=== PATIENT | female | born 1940 | race Caucasian/White ===

== ENCOUNTER 2017-04-27 13:49 | Inpatient (IN) | payer OTHER, MEDICARE ==
[~2017-04-27] VITALS: Ht 160 cm; Wt 79.4 kg
--- NOTE | 2017-04-27 13:57 | NUR ---
GOT UP TO FEED DOGS AND STARTED FEELING A LITTLE SHAKY THEN SHE FELL AND HIT HER HEAD ON THE BACK OF A COOLER. UNKNOWN LOC. PT STATES SHE FELT NAUSEOUS PRIOR TO EVENT
--- NOTE | 2017-04-27 13:58 | NUR ---
PT DENIES CP. BP 90/56 IN TRIAGE
--- NOTE | 2017-04-27 14:26 | NUR ---
PT TO ER ROOM 9 VIA WHEELCHAIR. C/O PAIN TO BACK OF HEAD. PT STATES SHE WAS FEEDING THE CAT AND SHE FELL BACKWARDS. PT DENIES LOC. STATES SHE "MIGHT HAVE FELT NAUSEOUS" PRIOR TO FALLING.
--- NOTE | 2017-04-27 14:31 | NUR ---
PT DENIES NECK/BACK PAIN ON PLAPATION, ONLY C/O PAIN TO BACK OF HEAD, NO LACERATION NOTED.
--- NOTE | 2017-04-27 15:16 | NUR ---
PT TO CT, COLLARED BY RAMBO RIVERA
--- NOTE | 2017-04-27 15:25 | NUR ---
PT RETURNED FROM CT
--- NOTE | 2017-04-27 15:35 | NUR ---
LABS SENT (BLUE,SST,LAV,CARMONA)
[2017-04-27 15:42] LABS: ABSOLUTE BASOPHIL COUNT 0 /CUMM (0.0-0.2); ABSOLUTE EOSINOPHIL COUNT 0.1 /CUMM (0.0-0.7); ABSOLUTE GRANULOCYTE CT 5.8 /CUMM (1.4-6.5); ABSOLUTE LYMPH COUNT 1.6 /CUMM (1.2-3.4); BASOPHIL % 0.4 % (0.0-2.0); EOSINOPHIL % 0.9 % (0-5); GRANULOCYTE % 67.9 % (42.2-75.2); HEMATOCRIT 39.9 % (37-47); MEAN CORPUSCULAR HGB CONC 34.1 G/DL (33.0-37.0); MEAN CORPUSCULAR VOLUME 93.8 FL (81.0-99.0); MEAN PLATELET VOLUME 6.7 FL (7.4-10.4); PLATELET COUNT 257 /CUMM (130-400); RBC DISTRIBUTION WIDTH 12.2 % (11.5-14.5); RED BLOOD CELL CT 4.25 /CUMM (4.20-5.40); WHITE BLOOD CELL COUNT 8.6 /CUMM (4.8-10.8)
[2017-04-27] MEDS ORDERED: NEXIUM40 M1 PO (16:08)
[2017-04-27] MEDS ORDERED: AMLODIPINE-BEN1 EAC5 PO (16:08)
[2017-04-27] MEDS ORDERED: CRESTOR10 M1 PO (16:08)
[2017-04-27] MEDS ORDERED: LEVOTHYROXINE112 MCG PO (16:08)
[2017-04-27] MEDS ORDERED: PAROXETINE HCL30 M1 PO (16:08)
[2017-04-27] MEDS ORDERED: HUMIRA40 MG/0.1 INJ (16:09)
[2017-04-27] MEDS ORDERED: FOLIC ACID1 M1 PO (16:09)
[2017-04-27] MEDS ORDERED: VENTOLIN HFA18 GM INH (16:10)
[2017-04-27] MEDS ORDERED: CALCIUM 500 +1 EACH PO (16:11)
[2017-04-27] MEDS ORDERED: VITAMIN D-32000 UNI1 PO (16:11)
--- NOTE | 2017-04-27 16:16 | CT SCAN REPORT ---
CT HEAD WITHOUT IV CONTRAST CT CERVICAL SPINE WITHOUT IV CONTRAST INDICATION: Status post fall. Posterior head pain, right lateral neck pain. COMPARISON: None. TECHNIQUE: Multidetector CT acquisitions of the head, maxillofacial region, and cervical spine were obtained without IV contrast. Multiplanar reformats were acquired and utilized for image interpretation. ESTIMATED DOSE: DLP 1188 mGy-cm. FINDINGS: HEAD: There is no evidence of acute intracranial hemorrhage or territorial infarction. No abnormal mass effect or midline shift is seen. Reaves to white matter differentiation is well preserved. No extra-axial fluid collections are identified. The ventricles are normal in size. There is no abnormal attenuation within the brain parenchyma. The osseous structures and soft tissues are normal. The mastoid air cells and visualized portions of the paranasal sinuses are well aerated. There is a small eva bullosa involving the middle turbinate on the left. CERVICAL SPINE: There is anatomic alignment of the vertebral bodies and posterior elements. There is no acute fracture and there is no acute subluxation. The craniocervical and atlantoaxial articulations appear unremarkable. There is no prevertebral soft tissue swelling. There is a moderate broad-based disc osteophyte complex with moderate hypertrophic productive uncovertebral and facet degenerative changes resulting in moderate to severe canal and bilateral foraminal narrowing at the C4/C5 level. There is a milder broad-based disc bulge at the C5/C6 level with milder hypertrophic uncovertebral degenerative changes resulting in moderate bilateral foraminal narrowing and moderate to severe canal stenosis. There is extensive atherosclerotic calcification of the carotid bulb and proximal internal carotid artery on the right. Ultrasound should be considered to further evaluate. A stent is identified in the proximal left subclavian and a synthetic vascular bypass graft traverses the soft tissues just anterior to the sternum. The right lobe of the thyroid gland has either been removed or is aplastic, left lobe is heterogeneous with mild nodularity. The visualized lung apices are clear. IMPRESSION: 1. No acute intracranial abnormality. 2. No acute osseous abnormality within the cervical spine. 3. Moderate degenerative changes most notably C4/C5 greater than 5/6. 4. Nodularity in the left thyroid gland with probable previous right thyroidectomy. Clinical correlation recommended. 5. Extensive atherosclerotic changes in the right carotid bulb. Clinical correlation is recommended and follow-up Doppler ultrasound to further evaluate if indicated.
--- NOTE | 2017-04-27 16:36 | ED MVC/FALL/TRAUMA COMPLAINT ---
History of Present Illness General Chief Complaint: Fall Stated Complaint: FALL, HIT NECK AND HEAD -LOC Source: patient, family Exam Limitations: no limitations Vital Signs & Intake/Output Vital Signs & Intake/Output Vital Signs Date Time Temp Pulse Resp B/P B/P Pulse O2 O2 Flow FiO2 Mean Ox Delivery Rate 04/29 1412 87 100/60 04/29 1406 97.7 87 18 100/60 98 Room Air 04/29 1013 70 128/72 04/29 1013 70 128/72 04/29 0648 99.1 89 20 180/72 96 Room Air 04/28 2304 98.6 78 20 158/70 95 Room Air ED Intake and Output 04/29 0000 04/28 1200 Intake Total 575 1350 Output Total 600 1400 Balance -25 -50 Intake, IV 100 850 Intake, Oral 475 500 Number 0 Bowel Movements Output, Urine 600 1400 Patient 175 lb Weight Allergies Coded Allergies: Iodinated Contrast- Oral and IV Dye (RASH, SOB 04/27/17) Penicillins (THROAT FELT LIKE IT WAS CLOSING PER PT 04/27/17) shellfish derived (UNKNOWN 04/27/17) Reconcile Medications Adalimumab (Humira) (Unknown Strength) SYRINGEKIT (Unknown Dose) INJ Q2W PSORIASIS (Reported) Albuterol Sulfate (Ventolin Hfa) 90 MCG HFA.AER.AD 1-2 PUF INH AD PRN RESPIRATORY (Reported) Amlodipine Besylate/Benazepril (Amlodipine-Benazepril 10-40 MG) 10 MG-40 MG CAPSULE 1 CAP PO DAILY BP (Reported) Calcium Carbonate/Vitamin D3 (Calcium 500 + Vit D Caplet) (Unknown Strength) TABLET (Unknown Dose) PO DAILY SUPPLEMENT (Reported) Cholecalciferol (Vitamin D3) (Vitamin D-3) (Unknown Strength) CAPSULE (Unknown Dose) PO DAILY SUPPLEMENT (Reported) Esomeprazole (Nexium) 40 MG CAPSULE.DR 1 CAP PO DAILY GI (Reported) Folic Acid 1 MG TABLET 1 TAB PO DAILY SUPPLEMENT (Reported) Levothyroxine Sodium 112 MCG TABLET 1 TAB PO DAILY THYROID (Reported) Paroxetine HCl 30 MG TABLET 1 TAB PO DAILY MENTAL HEALTH (Reported) Rosuvastatin Calcium (Crestor) 10 MG TABLET 1 TAB PO DAILY CHOLESTEROL ( Reported) Triage Note: GOT UP TO FEED DOGS AND STARTED FEELING A LITTLE SHAKY THEN SHE FELL AND HIT HER HEAD ON THE BACK OF A COOLER. UNKNOWN LOC. PT STATES SHE FELT NAUSEOUS PRIOR TO EVENT Triage Nurses Notes Reviewed? yes Onset: Abrupt Duration: hour(s): Timing: single episode today Severity: moderate Injuries/Fall Location: head, neck Method of Injury: fall Loss of Consciousness: unsure No Modifying Factors: none HPI: 76-year-old female presents to emergency department after fall. Patient states that she was in kitchen and was turning around when she suddenly fell onto her back hitting the back of her head. She is unsure if she blacked out or lost consciousness however her son states that he immediately came into the room and she was looking around slightly dazed. Patient experiences intermittent dizziness however denies dizziness just prior to her fall. The patient is complaining of a headache and right-sided neck pain. She denies lightheadedness , chest pain, palpitations, abdominal pain, musculoskeletal pain, back pain. (HI KAN PA-C) Past History Travel History Traveled to [place] past 21 day No Medical History Any Pertinent Medical History? see below for history Neurological: NONE EENT: NONE Cardiovascular: hypertension, hyperlipidemia Respiratory: NONE Gastrointestinal: NONE Hepatic: NONE Renal: NONE Musculoskeletal: PSORIATIC ARTHRITIS Psychiatric: anxiety Endocrine: hypothyroidism Blood Disorders: NONE Cancer(s): NONE BUYER GRAIN/Reproductive: NONE Pneumonia Vaccine: 11/01/08 Influenza Vaccine: 08/01/15 Tetanus Vaccine: 08/31/13 Surgical History Surgical History: non-contributory Psychosocial History Who do you live with Son Services at Home None What is your primary language Azeri Tobacco Use: Quit >30 days ago ETOH Use: denies use Illicit Drug Use: denies illicit drug use Family History Hx Contributory? No (HI KAN PA-C) Review of Systems Review of Systems Constitutional: Reports: no symptoms. Eyes: Reports: no symptoms. Ears, Nose, Throat, Mouth: Reports: no symptoms. Respiratory: Reports: no symptoms. Cardiovascular: Reports: no symptoms. Gastrointestinal/Abdominal: Reports: no symptoms. Genitourinary: Reports: no symptoms. Musculoskeletal: Reports: see HPI. Skin: Reports: no symptoms. Neurological/Psychological: Reports: no symptoms. All Other Systems: Reviewed and Negative (HI KAN PA-C) Physical Exam Physical Exam General Appearance: well developed/nourished, no apparent distress, alert, awake Head: atraumatic, normal appearance, tenderness over occiptal skull, no skin changes Eyes: Bilateral: normal appearance, PERRL, EOMI. 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 Yes Severe Sepsis Present: No Septic Shock Present: No (LUCIUS NEELY,HI) Progress Differential Diagnosis: C/T/L spine injury, ext injury, ICH, spinal cord injury, electrolyte abnormality Plan of Care: Orders Procedure Date/time Status BASIC ELECTROLYTES PLUS BUN&CR 04/30 600 Active Anticipated Discharge 04/29 UNK Active Current Medications Sig/Marisa Start time Last Medication Dose Stop Time Status Admin Docusate Sodium 100 MG BID 04/29 2200 AC 04/29 (Colace) 205 Senna/Docusate Sodium 2 TAB DAILY PRN 04/29 1830 AC (Senokot S) Polyethylene Glycol 17 GM DAILY 04/29 1816 AC 04/29 (Miralax) 1833 Mirtazapine 15 MG AT BEDTIME 04/28 2200 AC 04/29 (Remeron) 2056 Atorvastatin Calcium 40 MG 1700 04/28 1700 AC 04/29 (Lipitor) 1610 Amlodipine Besylate 10 MG DAILY 04/28 1000 AC 04/29 (Norvasc) 1013 Lisinopril 20 MG DAILY 04/28 1000 AC 04/29 (Prinivil) 1013 Levothyroxine Sodium 0.112 MG DAILY AC 04/28 0700 AC 04/29 (Synthroid) 0648 Omeprazole 40 MG DAILY AC 04/28 0700 AC 04/29 (Prilosec) 0648 Aspirin Buffered 81 MG DAILY 04/27 2315 AC 04/29 (Ecotrin) 1013 Enoxaparin Sodium 40 MG DAILY 04/27 2230 AC 04/29 (Lovenox) 1013 Acetaminophen 650 MG Q6P PRN 04/27 2145 AC 04/28 (Tylenol) 1629 Ramelteon 8 MG AT BEDTIME NEED.. 04/27 2145 AC (Rozerem) Laboratory Tests 04/29/17 0706: Anion Gap 8, Estimated GFR > 60, BUN/Creatinine Ratio 15.0 Patient is lying comfortably in bed. I walked patient to restroom and she had some instability, needed support for ambulation. Results of her head and neck CT are within normal limits. Labs reveal hyponatremia and hypochloremia. Fall possibly due to her hyponatremia. 1 L IV fluids replenished, currently slow drip normal saline. Patient was discussed with Dr. Andrade, the patient will need repeat labs to check her electrolyte imbalances, continued slow IV fluids for repletion of sodium, repeat troponin and EKG, possible PT consult if gait instability remains. Spoke with Dr. Costa on the phone and patient will be admitted to general medicine. (LUCIUS NEELY,HI) Diagnostic Imaging: Viewed by Me: CT Scan. Discussed w/RAD: CT Scan. Radiology Impression: PATIENT: TYRESE CHAPA PRESENT AGE: 76 PATIENT ACCOUNT NO: [id number] : 42 LOCATION: [facility] ORDERING PHYSICIAN: HI KAN PA-C SERVICE DATE: 04/27/17 EXAM TYPE: CAT - CT CERV SPINE WO IV CONTRAST; CT HEAD WO IV CONTRAST CT HEAD WITHOUT IV CONTRAST CT CERVICAL SPINE WITHOUT IV CONTRAST INDICATION: Status post fall. Posterior head pain, right lateral neck pain. COMPARISON: None. TECHNIQUE: Multidetector CT acquisitions of the head, maxillofacial region, and cervical spine were obtained without IV contrast. Multiplanar reformats were acquired and utilized for image interpretation. ESTIMATED DOSE: DLP 1188 mGy-cm. FINDINGS: HEAD: There is no evidence of acute intracranial hemorrhage or territorial infarction. No abnormal mass effect or midline shift is seen. Reaves to white matter differentiation is well preserved. No extra-axial fluid collections are identified. The ventricles are normal in size. There is no abnormal attenuation within the brain parenchyma. The osseous structures and soft tissues are normal. The mastoid air cells and visualized portions of the paranasal sinuses are well aerated. There is a small eva bullosa involving the middle turbinate on the left. CERVICAL SPINE: There is anatomic alignment of the vertebral bodies and posterior elements. There is no acute fracture and there is no acute subluxation. The craniocervical and atlantoaxial articulations appear unremarkable. There is no prevertebral soft tissue swelling. There is a moderate broad-based disc osteophyte complex with moderate hypertrophic productive uncovertebral and facet degenerative changes resulting in moderate to severe canal and bilateral foraminal narrowing at the C4/C5 level. There is a milder broad-based disc bulge at the C5/C6 level with milder hypertrophic uncovertebral degenerative changes resulting in moderate bilateral foraminal narrowing and moderate to severe canal stenosis. There is extensive atherosclerotic calcification of the carotid bulb and proximal internal carotid artery on the right. Ultrasound should be considered to further evaluate. A stent is identified in the proximal left subclavian and a synthetic vascular bypass graft traverses the soft tissues just anterior to the sternum. The right lobe of the thyroid gland has either been removed or is aplastic, left lobe is heterogeneous with mild nodularity. The visualized lung apices are clear. IMPRESSION: 1. No acute intracranial abnormality. 2. No acute osseous abnormality within the cervical spine. 3. Moderate degenerative changes most notably C4/C5 greater than 5/6. 4. Nodularity in the left thyroid gland with probable previous right thyroidectomy. Clinical correlation recommended. 5. Extensive atherosclerotic changes in the right carotid bulb. Clinical correlation is recommended and follow-up Doppler ultrasound to further evaluate if indicated. DICTATED BY: LILLIAN GARCIA MD DATE/TIME DICTATED:04/27/171533 SENIOR MECHANICAL DESIGNER:ALEX DATE/TIME TRANSCRIBED:04/27/171533 CONFIDENTIAL, DO NOT COPY WITHOUT APPROPRIATE AUTHORIZATION. <Electronically signed in Other Vendor System> SIGNED BY: LILLIAN GARCIA MD 04/27/17 1616, PATIENT: TYRESE CHAPA PRESENT AGE: 76 PATIENT ACCOUNT NO: [id number] : 42 LOCATION: [facility] ORDERING PHYSICIAN: HI KAN PA-C SERVICE DATE: 04/27/17-6105 EXAM TYPE: CAT - CT CERV SPINE WO IV CONTRAST; CT HEAD WO IV CONTRAST CT HEAD WITHOUT IV CONTRAST CT CERVICAL SPINE WITHOUT IV CONTRAST INDICATION: Status post fall. Posterior head pain, right lateral neck pain. COMPARISON: None. TECHNIQUE: Multidetector CT acquisitions of the head, maxillofacial region, and cervical spine were obtained without IV contrast. Multiplanar reformats were acquired and utilized for image interpretation. ESTIMATED DOSE: DLP 1188 mGy-cm. FINDINGS: HEAD: There is no evidence of acute intracranial hemorrhage or territorial infarction. No abnormal mass effect or midline shift is seen. Reaves to white matter differentiation is well preserved. No extra-axial fluid collections are identified. The ventricles are normal in size. There is no abnormal attenuation within the brain parenchyma. The osseous structures and soft tissues are normal. The mastoid air cells and visualized portions of the paranasal sinuses are well aerated. There is a small eva bullosa involving the middle turbinate on the left. CERVICAL SPINE: There is anatomic alignment of the vertebral bodies and posterior elements. There is no acute fracture and there is no acute subluxation. The craniocervical and atlantoaxial articulations appear unremarkable. There is no prevertebral soft tissue swelling. There is a moderate broad-based disc osteophyte complex with moderate hypertrophic productive uncovertebral and facet degenerative changes resulting in moderate to severe canal and bilateral foraminal narrowing at the C4/C5 level. There is a milder broad-based disc bulge at the C5/C6 level with milder hypertrophic uncovertebral degenerative changes resulting in moderate bilateral foraminal narrowing and moderate to severe canal stenosis. There is extensive atherosclerotic calcification of the carotid bulb and proximal internal carotid artery on the right. Ultrasound should be considered to further evaluate. A stent is identified in the proximal left subclavian and a synthetic vascular bypass graft traverses the soft tissues just anterior to the sternum. The right lobe of the thyroid gland has either been removed or is aplastic, left lobe is heterogeneous with mild nodularity. The visualized lung apices are clear. IMPRESSION: 1. No acute intracranial abnormality. 2. No acute osseous abnormality within the cervical spine. 3. Moderate degenerative changes most notably C4/C5 greater than 5/6. 4. Nodularity in the left thyroid gland with probable previous right thyroidectomy. Clinical correlation recommended. 5. Extensive atherosclerotic changes in the right carotid bulb. Clinical correlation is recommended and follow-up Doppler ultrasound to further evaluate if indicated. DICTATED BY: LILLIAN GARCIA MD DATE/TIME DICTATED:04/27/171533 SENIOR MECHANICAL DESIGNER:ALEX DATE/TIME TRANSCRIBED:04/27/171533 CONFIDENTIAL, DO NOT COPY WITHOUT APPROPRIATE AUTHORIZATION. <Electronically signed in Other Vendor System> SIGNED BY: LILLIAN GARCIA MD 04/27/17 1616 (HI KAN PA-C) Departure Departure Time of Disposition: 1940 Disposition: STILL A PATIENT Condition: Stable Clinical Impression Primary Impression: Hyponatremia Referrals: GERALDO COSTA MD (PCP/Family) Departure Forms: Customer Survey General Discharge Information Admission Note Spoke With: GERALDO COSTA MD Documentation of Exam: Documentation of any treatments & extenuating circumstances including Concerns Regarding Discharge (functional status, medication knowledge or non-compliance, living conditions, etc.) that warrant an admission rather than observation: [ Symptomatic hyponatremia, case management consult, repeat electrolytes and labs, PT eval if there instability persists, slow drip IV fluids, sodium repletion, repeat troponin and EKG, possible rehabilitation given fall, premature discharge with medically harmful] (HI KAN PA-C) PA/FLOWER BUNCHER OR PICKER Co-Sign Statement Statement: ED Attending supervision documentation- x I saw and evaluated the patient. I have also reviewed all the pertinent lab results and diagnostic results. I agree with the findings and the plan of care as documented in the PA's/FLOWER BUNCHER OR PICKER's documentation. [] I have reviewed the ED Record and agree with the PA's/FLOWER BUNCHER OR PICKER's documentation. [] Additions or exceptions (if any) to the PAs/FLOWER BUNCHER OR PICKER's note and plan are summarized below: [] (RUBEN ALEXANDER,ALEJANDRO)
--- NOTE | 2017-04-27 16:43 | NUR ---
COLLARED REMOVED BY PA. PT AMBULATING TO BR, GAIT STEADY.
--- NOTE | 2017-04-27 16:51 | NUR ---
AMB TO BATHROOM URINE TRIO SENT
--- NOTE | 2017-04-27 18:37 | NUR ---
PT UP TO BEDSIDE COMMODE
--- NOTE | 2017-04-27 20:00 | Admission Certification ---
Admission Certification Certification Statement - As attending physician, I certify that at the time of - admission, based on clinical presentation, severity of - symptoms, need for further diagnostic testing and - therapeutic interventions, and risk of adverse outcomes - without in-hospital treatment, in my clinical assessment, - this patient requires an acute hospital stay for a minimum - of two nights or longer. I have also considered psychsocial - factors such as support system, advanced age, financial - issues, cognitive issues, and failed out-patient treatments, - past re-admission history, safety of patient, and lack of - compliance as applicable. Specific rationale supporting this admission is: mechanical fall hyponatremia ? etiology.
--- NOTE | 2017-04-27 20:05 | PN- Att Addend ---
Attending Addendum Attending Brief Note 76 year old female seen recently in the office,started on Paxil after still not feeling better weak poor appetite diarrhea had a mechanical fall at home hit head comes to the ER CT of the head nothing acute,but found to have hyponatremia , will admit follow labs check urine lytes treat low sodium. Laboratory Tests 04/27 04/27 1645 1530 Chemistry Sodium (137 - 145 mmol/L) 124 L Potassium (3.5 - 5.1 mmol/L) 3.6 Chloride (98 - 107 mmol/L) 89 L Carbon Dioxide (22 - 30 mmol/L) 25 Anion Gap (5 - 16) 11 BUN (7 - 17 mg/dL) 18 H Creatinine (0.5 - 1.0 mg/dL) 0.7 Estimated GFR (>60 ml/min) > 60 BUN/Creatinine Ratio (7 - 25 %) 25.7 H Glucose (65 - 99 mg/dL) 96 Calcium (8.4 - 10.2 mg/dL) 9.8 Total Bilirubin (0.2 - 1.3 mg/dL) 0.7 AST (14 - 36 U/L) 28 ALT (9 - 52 U/L) 40 Alkaline Phosphatase (<127 U/L) 64 Troponin I (< 0.11 ng/ml) < 0.01 Total Protein (6.3 - 8.2 g/dL) 6.7 Albumin (3.5 - 5.0 g/dL) 4.1 Globulin (1.9 - 4.2 gm/dL) 2.6 Albumin/Globulin Ratio (1.1 - 2.2 %) 1.6 Hematology CBC w Diff NO MAN DIFF REQ WBC (4.8 - 10.8 /CUMM) 8.6 RBC (4.20 - 5.40 /CUMM) 4.25 Hgb (12.0 - 16.0 G/DL) 13.6 Hct (37 - 47 %) 39.9 MCV (81.0 - 99.0 FL) 93.8 MCH (27.0 - 31.0 PG) 32.0 H RDW (11.5 - 14.5 %) 12.2 Plt Count (130 - 400 /CUMM) 257 MPV (7.4 - 10.4 FL) 6.7 L Gran % (42.2 - 75.2 %) 67.9 Lymphocytes % (20.5 - 51.1 %) 18.7 L Monocytes % (1.7 - 9.3 %) 12.1 H Eosinophils % (0 - 5 %) 0.9 Basophils % (0.0 - 2.0 %) 0.4 Absolute Granulocytes (1.4 - 6.5 /CUMM) 5.8 Absolute Lymphocytes (1.2 - 3.4 /CUMM) 1.6 Absolute Monocytes (0.10 - 0.60 /CUMM) 1.0 H Absolute Eosinophils (0.0 - 0.7 /CUMM) 0.1 Absolute Basophils (0.0 - 0.2 /CUMM) 0 PUBS MCHC (33.0 - 37.0 G/DL) 34.1 Urines Urinalysis LIGHT H Urine Color (YEL,AMB,STR) YEL Urine Clarity (CLEAR) CLEAR Urine pH (5.0 - 8.0) 6.5 Ur Specific [place] (1.001 - 1.035) <= 1.005 Urine Protein (NEG,<30 MG/DL) NEG Urine Ketones (NEG) NEG Urine Nitrite (NEG) NEG Urine Bilirubin (NEG) NEG Urine Urobilinogen (0.1 - 1.0 EU/dl) 0.2 Ur Leukocyte Esterase (NEG) LARGE H Ur Microscopic SEDIMENT EXAMINED Urine WBC (0 - 2 /HPF) 10-15 H Ur Epithelial Cells (NONE,FEW) FEW Urine Bacteria (NEG/NONE) FEW H Urine Hemoglobin (NEG) NEG Urine Glucose (N MG/DL) NEG
--- NOTE | 2017-04-27 20:27 | NUR ---
Emergency Dept UC Admit Note: To be admitted to [facility] by DR IBRAHIM with HYPONATREMIA, FALL as the diagnosis, to [facility] location. Nursing Cullet Trucker and admitting notified 04/27/17 at 1953 PT WILL GO TO ROOM 220-2
--- NOTE | 2017-04-27 20:40 | History & Physical ---
See Addendum SHUKRI ALEXANDER,[facility] 04/27/172038: General Information and HPI MD Statement: I have seen and personally examined TYRESE CHAPA and documented this H&P. The patient is a 76 year old F who presented with a patient stated chief complaint of [mechanical fall]. Source of Information: patient, family, old records Exam Limitations: no limitations History of Present Illness: Ms. Chapa is 76 year old female with past medical history significant for hypertension, hyperlipidemia, peripheral artery disease status post femorofemoral bypass and revascularization of left left brachial and left radial arteries in 2002 and 2010, CAD, status post an AK in 2001, psoriasis/psoriatic arthritis, hypothyroidism and anxiety/depression who presented from home after fall. Patient reported that after starting paroxitine on Wednesday, had 2 episodes of watery diarrhea on Wednesday, one episode of diarrhea on Wednesday, patient was pale, had chills and nausea but no vomiting. On day of admission while patient was standing for 10 minutes to prepare food for her dog, she fell down with questionable history of blacking out, patient reported hitting her head against a cooler in the kitchen, her son heared a thrud and came to found her on the floor. Patient has severe anxiety and was started on paroxetine by PCP. Patient denied any chest pain, palpitation, shortness of breath, abdominal pain, dysuria, urine or stool incontinence, focal weakness, numbness. She reported good oral intake. Denied history of sick contact. Allergies/Medications Allergies: Coded Allergies: Iodinated Contrast- Oral and IV Dye (RASH, SOB 04/27/17) Penicillins (THROAT FELT LIKE IT WAS CLOSING PER PT 04/27/17) shellfish derived (UNKNOWN 04/27/17) Home Med list Adalimumab (Humira) (Unknown Strength) SYRINGEKIT (Unknown Dose) INJ Q2W PSORIASIS (Reported) Albuterol Sulfate (Ventolin Hfa) 90 MCG HFA.AER.AD 1-2 PUF INH AD PRN RESPIRATORY (Reported) Amlodipine Besylate/Benazepril (Amlodipine-Benazepril 10-40 MG) 10 MG-40 MG CAPSULE 1 CAP PO DAILY BP (Reported) Calcium Carbonate/Vitamin D3 (Calcium 500 + Vit D Caplet) (Unknown Strength) TABLET (Unknown Dose) PO DAILY SUPPLEMENT (Reported) Cholecalciferol (Vitamin D3) (Vitamin D-3) (Unknown Strength) CAPSULE (Unknown Dose) PO DAILY SUPPLEMENT (Reported) Esomeprazole (Nexium) 40 MG CAPSULE.DR 1 CAP PO DAILY GI (Reported) Folic Acid 1 MG TABLET 1 TAB PO DAILY SUPPLEMENT (Reported) Levothyroxine Sodium 112 MCG TABLET 1 TAB PO DAILY THYROID (Reported) Paroxetine HCl 30 MG TABLET 1 TAB PO DAILY MENTAL HEALTH (Reported) Rosuvastatin Calcium (Crestor) 10 MG TABLET 1 TAB PO DAILY CHOLESTEROL ( Reported) Past History Travel History Traveled to [place] past 21 day No Medical History Cardiovascular: hypertension, hyperlipidemia Musculoskeletal: PSORIATIC ARTHRITIS Psychiatric: anxiety Endocrine: hypothyroidism Pneumonia Vaccine: 11/01/08 Influenza Vaccine: 08/01/15 Tetanus Vaccine: 08/31/13 Surgical History Surgical History: non-contributory Past Family/Social History Psychosocial History Services at Home: None ETOH Use: denies use Illicit Drug Use: denies illicit drug use Review of Systems Review of Systems Constitutional: Reports: see HPI. Exam & Diagnostic Data Last 24 Hrs of Vital Signs/I&O Vital Signs Date Time Temp Pulse Resp B/P B/P Pulse O2 O2 Flow FiO2 Mean Ox Delivery Rate 04/28 0639 98.4 73 20 152/80 93 Room Air 04/27 2228 98.1 78 20 160/70 94 Room Air 04/27 1927 96.8 81 16 146/70 97 Room Air 04/27 1631 97.5 80 16 168/76 95 Room Air 04/27 1420 77 20 134/69 98 Room Air 04/27 1356 98.1 88 20 90/56 99 Room Air Intake & Output 04/28 0800 04/28 0000 04/27 1600 Intake Total 1250 0 Output Total 500 150 Balance -500 1100 0 Intake, IV 1250 Intake, Oral 0 0 Number 0 Bowel Movements Output, Urine 500 150 Patient 79.379 kg 79.379 kg Weight Weight Reported by Patient Reported by Patient Measurement Method Physical Exam General Appearance Alert, Oriented X3, Cooperative, Mild Distress Skin No Rashes, No Breakdown, No Significant Lesion Skin Temp/Moisture Exam: Warm/Dry HEENT Atraumatic, PERRLA, EOMI, Mucous Membr. moist/pink Neck Supple, no neck stiffness Lymphatic no cervical lymphadenopathy Cardiovascular Regular Rate, Normal S1, Normal S2, No Murmurs Lungs Clear to Auscultation, Normal Air Movement Abdomen Normal Bowel Sounds, Soft, No Tenderness, No Hepatospenomegaly, No Masses Neurological Normal Gait, Normal Speech, Strength at 5/5 X4 Ext, Normal Tone, Sensation Intact, Cranial Nerves 3-12 NL, Reflexes 2+ Extremities No Clubbing, No Cyanosis, No Edema, Normal Pulses, No Tenderness/ Swelling Assessment/Plan Assessment: Ms. Chapa is 76 year old female with past medical history significant for hypertension, hyperlipidemia, peripheral artery disease status post femorofemoral bypass and revascularization of left left brachial and left radial arteries in 2002 and 2010, CAD, status post an AK in 2001, psoriasis/psoriatic arthritis, hypothyroidism and anxiety/depression who presented from home after fall. Plan 1. Syncopal episode possibly secondary to hypotension from dehydration 2. Hyponatremia-possibly drug-induced by paroxetine (literature shows that paroxetine can cause hyponatremia usually within the first 2 weeks of starting the medication) vs loss from diarrhea. R/o SIADH, poorly controlled hypothyroidism 3. Asymptomatic bacteriuria-no urinary complaint, no fever, no WBC 4. Anxiety/depression Plan Admit to general medicine floor IV normal saline at 100 mL/h Paroxetine on hold Psych consult Orthostats measurment Urine culture Continue home medications SC lovenox for DVT Heart healthy diet Full code As Ranked By This Provider Problem List: 1. Hyponatremia 2. Anxiety 3. Fall Core Measures/Miscellaneous Acute Coronary Syndrome ACS Diagnosis: No Cerebrovascular Accident CVA/TIA Diagnosis: No Congestive Heart Failure CHF Diagnosis: No VTE (View Protocol) VTE Risk Factors: Age > 40 No [facility] VTE prophylaxis d/t: No contraindications No VTE Pharm Prophylaxis d/t: No contraindications VTE Diagnosis: No VTE Type: NONE VTE Confirmed by (Test): NONE Sepsis (View Protocol) Severe Sepsis Present: No Septic Shock Septic Shock Present: No Miscellaneous Documentation Attending Case Discussed With: GERALDO COSTA MD Primary Care Physician: GERALDO COSTA MD Patient sees these Specialists NONE Level of Patient Care: General Medicine BROOKE REYNA MD 04/27/174: Resident Review Statement Resident Statement: examined this patient, discussed with training intern, agreed with training intern Other Findings: 76-year-old female with a past medical history of hypertension, hyperlipidemia, peripheral artery disease status post femorofemoral bypass and revascularization of left left brachial and left radial arteries in 2002 and 2010, CAD, status post an AK in 2001, psoriasis/psoriatic arthritis, hypothyroidism and anxiety/ depression who is presenting status post fall from home. Patient was said to have blacked out while standing at the kitchen counter and struck her head on a cooler when she fell. She does not remember the fall and only remembers feeling woozy with pain at the back head when she woke up. Loss of consciousness was brief as she was immediately found by her son who was in the next room and had a thump. She was brought to the ER shortly after and her blood pressure was found to be borderline low at 90/56. She also reports a history of diarrhea that started 2 days ago with associated flushing, nausea and feeling dehydrated and flushed. She denies abdominal pain, fever, chest pain, or shortness of breath. Patient reports that she has been feeling worsening anxiety and depression in the past couple of weeks and followed up with her primary care physician Dr. Costa last week Wednesday and was started on 30 mg of paroxetine which she started taking same day. However since starting the new medication, she has been feeling like her usual self, saying she felt spaced out, lightheaded and drowsy. She also feels it may have been the cause of her dairrhea. Family History of CAD in father and TIA in son. Of note she stopped taking a daily baby aspirin a couple of years ago because it made her easily bruisable and she did not like how it made her skin feel. Labs pertinent for Sodium of 124, positive UA CT head notable for nodularity in the left thyroid gland with probable previous right thyroidectomy. Clinical correlation recommended and extensive atherosclerotic changes in the right carotid bulb. Clinical correlation is recommended and follow-up Doppler ultrasound to further evaluate if indicated. EKG-NSR Exam-WNL except for dry mucous membranes Assessment 1. Syncopal episode possibly secondary to hypotension from dehydration 2. Hyponatremia-possibly drug-induced by paroxetine (literature shows that paroxetine can cause hyponatremia usually within the first 2 weeks of starting the medication) vs loss from diarrhea. R/o SIADH, poorly controlled hypothyroidism 3. Asymptomatic bacteriuria-no urinary complaint, no fever, no WBC 4. Anxiety/depression 5. CAD s/p AK, PAD 6. HTN 7. Hypothyroidism 8. Psoriasis/psoriatic arthritis 9. Hyperlipidemia Plan Admit to general medicine floor Hydrate with IV normal saline at 100 mL/h Stop Paroxetine Patient will need Psych consult for evaluation of her anxiety/depression and to consider starting a different medication Check orthostats Restart aspirin at 81 mg daily to patient's history of CAD and PAD Stool culture ACS ruled out Regular checks of vitals Check TSH,free T4 Urine culture Watch off antibiotics; if patient spikes a fever overnight, draw blood cultures and start broad-spectrum antibiotics Check urine lytes and serum lytes Resume important home medications Serial BEP to monitor sodium PT eval Pain pathway ordered SC lovenox for DVT Heart healthy diet FC
--- NOTE | 2017-04-27 20:48 | NUR ---
REPORT GIVEN TO FLOOR RN
--- NOTE | 2017-04-27 21:35 | NUR ---
PT TRANSPORTED TO FLOOR
[2017-04-27 22:28] VITALS: BP 160/70
[2017-04-28 03:00] VITALS: BP 194/90
[2017-04-28 04:00] VITALS: BP 180/80
[2017-04-28 06:39] VITALS: BP 152/80
--- NOTE | 2017-04-28 07:22 | PN- Housestaff ---
Subjective Follow-up For: Hyponatremia Orthostatic hypotension Subjective: I saw and examined the patient today morning She was doing well, no overnight events. Very anxious, denies any nausea, vomiting, diarrhea, fevers overnight. Dont like to stay in hospital -- wants to go home. Review of Systems Constitutional: Reports: see HPI. EENTM: Reports: see HPI. Objective Last 24 Hrs of Vital Signs/I&O Vital Signs Date Time Temp Pulse Resp B/P B/P Pulse O2 O2 Flow FiO2 Mean Ox Delivery Rate 04/28 0639 98.4 73 20 152/80 93 Room Air 04/27 2228 98.1 78 20 160/70 94 Room Air 04/27 1927 96.8 81 16 146/70 97 Room Air 04/27 1631 97.5 80 16 168/76 95 Room Air 04/27 1420 77 20 134/69 98 Room Air 04/27 1356 98.1 88 20 90/56 99 Room Air Intake & Output 04/28 0800 04/28 0000 04/27 1600 Intake Total 1250 0 Output Total 500 150 Balance -500 1100 0 Intake, IV 1250 Intake, Oral 0 0 Number 0 Bowel Movements Output, Urine 500 150 Patient 79.379 kg 79.379 kg Weight Weight Reported by Patient Reported by Patient Measurement Method Physical Exam General Appearance: Alert, Oriented X3, Cooperative, No Acute Distress, Moderate Distress Skin: No Rashes, No Breakdown HEENT: Atraumatic, PERRLA Neck: Supple Cardiovascular: Normal S1, Normal S2 Lungs: Clear to Auscultation, Normal Air Movement Abdomen: Normal Bowel Sounds, Soft, No Tenderness Neurological: Normal Speech, Sensation Intact Extremities: No Clubbing, No Cyanosis, No Edema Vascular: Normal Pulses Current Medications: Current Medications Sig/Marisa Start time Last Medication Dose Route Stop Time Status Admin Acetaminophen 650 MG Q6P PRN 04/27 2145 AC PO Acetaminophen 0 .STK-MED ONE 04/27 1517 DC PO Acetaminophen 650 MG ONCE ONE 04/27 1515 DC 04/27 PO 04/27 1516 1513 Alprazolam 0.5 MG ONCE ONE 04/28 0315 DC PO 04/28 0316 Amlodipine Besylate 10 MG DAILY 04/28 1000 AC 04/28 PO 0931 Aspirin Buffered 81 MG DAILY 04/27 2315 AC 04/28 PO 0931 Atorvastatin Calcium 40 MG 1700 04/28 1700 AC PO Enoxaparin Sodium 40 MG DAILY 04/27 2230 AC 04/28 SC 0932 Levothyroxine Sodium 0.112 MG DAILY AC 04/28 0700 AC 04/28 PO 0652 Lisinopril 20 MG DAILY 04/28 1000 AC 04/28 PO 0932 Omeprazole 40 MG DAILY AC 04/28 0700 AC 04/28 PO 0651 Potassium Chloride 40 MEQ ONCE ONE 04/28 0930 DC 04/28 PO 04/28 0931 0931 Ramelteon 8 MG AT BEDTIME NEED.. 04/27 2145 AC PO Sodium Chloride 1,000 ML .Q10H 04/27 2145 CAN IV Sodium Chloride 1,000 ML Q8H 04/27 1830 DC 04/28 IV 0220 Sodium Chloride 1,000 ML BOLUS ONE 04/27 1715 DC 04/27 IV 04/27 1814 1725 Last 24 Hrs of Lab/August Results Last 24 Hrs of Labs/Mics: Laboratory Tests 04/28/17 0740: Anion Gap 9, Estimated GFR > 60, BUN/Creatinine Ratio 16.0, CBC w Diff NO MAN DIFF REQ, RBC 4.25, MCV 92.9, MCH 31.9 H, RDW 12.4, MPV 7.5, Gran % 63.6, Lymphocytes % 22.3, Monocytes % 12.6 H, Eosinophils % 1.1, Basophils % 0.4, Absolute Granulocytes 4.1, Absolute Lymphocytes 1.4, Absolute Monocytes 0.8 H, Absolute Eosinophils 0.1, Absolute Basophils 0, PUBS MCHC 34.3 04/28/17 0600: Urine Osmolality Cancelled 04/27/17 1645: Urinalysis LIGHT H, Urine Color YEL, Urine Clarity CLEAR, Urine pH 6.5, Ur Specific [place] <= 1.005, Urine Protein NEG, Urine Ketones NEG, Urine Nitrite NEG, Urine Bilirubin NEG, Urine Urobilinogen 0.2, Ur Leukocyte Esterase LARGE H , Ur Microscopic SEDIMENT EXAMINED, Urine WBC 10-15 H, Ur Epithelial Cells FEW, Urine Bacteria FEW H, Urine Hemoglobin NEG, Urine Glucose NEG 04/27/17 1645: Urine Osmolality 145 L, Ur Random Creatinine 29.7, Ur Random Sodium 10 L, Ur Random Potassium 8.6, Fraction Sodium Excret 0.2 04/27/17 1530: Anion Gap 11, Estimated GFR > 60, BUN/Creatinine Ratio 25.7 H, Glucose 96, Serum Osmolality 263 L, Calcium 9.8, Total Bilirubin 0.7, AST 28, ALT 40, Alkaline Phosphatase 64, Troponin I < 0.01, Total Protein 6.7, Albumin 4.1, Globulin 2.6, Albumin/Globulin Ratio 1.6, TSH 1.370, Free T4 1.93, CBC w Diff NO MAN DIFF REQ, RBC 4.25, MCV 93.8, MCH 32.0 H, RDW 12.2, MPV 6.7 L, Gran % 67.9 , Lymphocytes % 18.7 L, Monocytes % 12.1 H, Eosinophils % 0.9, Basophils % 0.4 , Absolute Granulocytes 5.8, Absolute Lymphocytes 1.6, Absolute Monocytes 1.0 H , Absolute Eosinophils 0.1, Absolute Basophils 0, PUBS MCHC 34.1 Microbiology 04/27 2304 STOOL: Stool Culture - COLB 04/27 2302 URINE ROUT: Urine Culture - CAN Cancelled: Cancelled via OE: Per MD Decision 04/27 1645 URINE ROUT: Urine Culture - RECD Lines/Diet/Fluids Lines: peripheral lines Assessment/Plan Assessment: Ms. Mcginnis is 76 year old female with PMH significant for HTN, HLD, PVD status post femorofemoral bypass and revascularization of left left brachial and left radial arteries in 2002 and 2010, CAD, status post an [place] in 2001, psoriasis/ psoriatic arthritis, hypothyroidism and anxiety/depression who presented from home after fall. She is admitted for hyponatremia secondary to Paroxetine and orthostatic hypotension. Plan Admit to general medicine floor Hyponatremia * Possibly secondary to Paroxetine vs dehydration * Urine lytes show urine osmolality of 145, random creatinine 29, random sodium 10, potassium 8.6. * Started on fluids NS @ 100ml/hr, discontinued after correcting Na to 134 from 124 in the past 24hrs * Discontinued paroxetine * check BEP tomorrow. Severe Anxiety * Patient is very anxious -- wants to go home * starting mirtazepine 15mg at bedtime today * Reports feeling unwell on xanax. * Psych consulted Neurocardiogenic syncope secondary to orthostatic hypotension * Orthostats are positive, we will repeat tomorrow * adequately hydrated * Urine culture chronic and stable conditions HTN: continue amlodipine 10mg, lisinopril 20mg Hypothyroidism: Levothyroxine 0.112mg daily CAD/PVD: Aspirin 81mg, Atorvastatin 40mg Insomnia: Ramelteon 8mg at bedtime SC lovenox for DVT Heart healthy diet Full code Problem List: 1. Hyponatremia 2. Fall 3. Anxiety Pain Ratin Pain Location: n/a Pain Goal: Pain 4 or less Pain Plan: tylenol prn Tomorrow's Labs & Rationales: bep to monitor electrolytes and Cr
[2017-04-28 09:01] LABS: ABSOLUTE BASOPHIL COUNT 0 /CUMM (0.0-0.2); ABSOLUTE EOSINOPHIL COUNT 0.1 /CUMM (0.0-0.7); ABSOLUTE GRANULOCYTE CT 4.1 /CUMM (1.4-6.5); ABSOLUTE LYMPH COUNT 1.4 /CUMM (1.2-3.4); ABSOLUTE MONOCYTE COUNT 0.8 /CUMM (0.10-0.60); BASOPHIL % 0.4 % (0.0-2.0); EOSINOPHIL % 1.1 % (0-5); GRANULOCYTE % 63.6 % (42.2-75.2); HEMATOCRIT 39.5 % (37-47); MEAN CORPUSCULAR HGB 31.9 PG (27.0-31.0); MEAN CORPUSCULAR HGB CONC 34.3 G/DL (33.0-37.0); MEAN CORPUSCULAR VOLUME 92.9 FL (81.0-99.0); MEAN PLATELET VOLUME 7.5 FL (7.4-10.4); PLATELET COUNT 238 /CUMM (130-400); RBC DISTRIBUTION WIDTH 12.4 % (11.5-14.5); RED BLOOD CELL CT 4.25 /CUMM (4.20-5.40); WHITE BLOOD CELL COUNT 6.4 /CUMM (4.8-10.8)
--- NOTE | 2017-04-28 10:21 | NUR ---
0300 PT RETING IN BED & C/O SHE IS SHAKY AND NERVOUS.ACCU 89.V/S 98.1-85-24.B/P 194/90.RA-98%.REPORTED TO FLOATING LABOR GANG SUPERVISOR.NEW ORDER RECEIVED. 0315 XANAX 0.5MG PO ORDERED BUT PT REFUSED TO TAKE AND FLOATING LABOR GANG SUPERVISOR AWARED. 0320 SEEN BY FLOATING LABOR GANG SUPERVISOR.ABLE TO CALM PT DOWN.SETTLED BACK TO SLEEP. 0400 B/P 180/80 NOW.PT IS CALM & NOT SHAKY.
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
[2017-04-28 14:14] VITALS: BP 168/74
--- NOTE | 2017-04-28 15:08 | PN- Att Addend ---
Attending Addendum Attending Brief Note Patient laying in bed, sister at the bedside, looks a little brighter still in the "depressed mood ". "Wants to go home" does not like hospitals. Vital signs are stable no major changes on physical patient was seen by psychiatry and recommendations were appreciated, her sodium level is improved now her potassium is slightly low at 3.4 and we'll be replacing. We'll follow labs closely before monocytes recommendations 24 TOTALS 04/28 0000 04/27 0000 Intake Total 1250 Output Total 150 Balance 1100 Intake, IV 1250 Intake, Oral 0 Output, Urine 150 Patient 175 lb Weight Weight Reported by Patient Measurement Method Current Medications Sig/Marisa Start time Last Medication Dose Route Stop Time Status Admin Acetaminophen 650 MG Q6P PRN 04/27 2145 AC PO Acetaminophen 0 .STK-MED ONE 04/27 1517 DC PO Acetaminophen 650 MG ONCE ONE 04/27 1515 DC 04/27 PO 04/27 1516 1513 Alprazolam 0.5 MG ONCE ONE 04/28 0315 DC PO 04/28 0316 Amlodipine Besylate 10 MG DAILY 04/28 1000 AC 04/28 PO 0931 Aspirin Buffered 81 MG DAILY 04/27 2315 AC 04/28 PO 0931 Atorvastatin Calcium 40 MG 1700 04/28 1700 AC PO Enoxaparin Sodium 40 MG DAILY 04/27 2230 AC 04/28 SC 0932 Levothyroxine Sodium 0.112 MG DAILY AC 04/28 0700 AC 04/28 PO 0652 Lisinopril 20 MG DAILY 04/28 1000 AC 04/28 PO 0932 Mirtazapine 15 MG AT BEDTIME 04/28 2200 AC PO Omeprazole 40 MG DAILY AC 04/28 0700 AC 04/28 PO 0651 Patient Medication 1 ED .STK-MED ONE 04/28 1334 DC Teaching ED 04/28 1335 Potassium Chloride 40 MEQ ONCE ONE 04/28 0930 DC 04/28 PO 04/28 0931 0931 Ramelteon 8 MG AT BEDTIME NEED.. 04/27 2145 AC PO Sodium Chloride 1,000 ML .Q10H 04/27 2145 CAN IV Sodium Chloride 1,000 ML Q8H 04/27 1830 DC 04/28 IV 0220 Sodium Chloride 1,000 ML BOLUS ONE 04/27 1715 DC 04/27 IV 04/27 1814 1725 Laboratory Tests 04/28/17 0740: Anion Gap 9, Estimated GFR > 60, BUN/Creatinine Ratio 16.0, CBC w Diff NO MAN DIFF REQ, RBC 4.25, MCV 92.9, MCH 31.9 H, RDW 12.4, MPV 7.5, Gran % 63.6, Lymphocytes % 22.3, Monocytes % 12.6 H, Eosinophils % 1.1, Basophils % 0.4, Absolute Granulocytes 4.1, Absolute Lymphocytes 1.4, Absolute Monocytes 0.8 H, Absolute Eosinophils 0.1, Absolute Basophils 0, PUBS MCHC 34.3 04/28/17 0600: Urine Osmolality Cancelled 04/27/17 1645: Urinalysis LIGHT H, Urine Color YEL, Urine Clarity CLEAR, Urine pH 6.5, Ur Specific [place] <= 1.005, Urine Protein NEG, Urine Ketones NEG, Urine Nitrite NEG, Urine Bilirubin NEG, Urine Urobilinogen 0.2, Ur Leukocyte Esterase LARGE H , Ur Microscopic SEDIMENT EXAMINED, Urine WBC 10-15 H, Ur Epithelial Cells FEW, Urine Bacteria FEW H, Urine Hemoglobin NEG, Urine Glucose NEG 04/27/17 1645: Urine Osmolality 145 L, Ur Random Creatinine 29.7, Ur Random Sodium 10 L, Ur Random Potassium 8.6, Fraction Sodium Excret 0.2 04/27/17 1530: Anion Gap 11, Estimated GFR > 60, BUN/Creatinine Ratio 25.7 H, Glucose 96, Serum Osmolality 263 L, Calcium 9.8, Total Bilirubin 0.7, AST 28, ALT 40, Alkaline Phosphatase 64, Troponin I < 0.01, Total Protein 6.7, Albumin 4.1, Globulin 2.6, Albumin/Globulin Ratio 1.6, TSH 1.370, Free T4 1.93, CBC w Diff NO MAN DIFF REQ, RBC 4.25, MCV 93.8, MCH 32.0 H, RDW 12.2, MPV 6.7 L, Gran % 67.9 , Lymphocytes % 18.7 L, Monocytes % 12.1 H, Eosinophils % 0.9, Basophils % 0.4 , Absolute Granulocytes 5.8, Absolute Lymphocytes 1.6, Absolute Monocytes 1.0 H , Absolute Eosinophils 0.1, Absolute Basophils 0, PUBS MCHC 34.1 Vital Signs Date Time Temp Pulse Resp B/P B/P Pulse O2 O2 Flow FiO2 Mean Ox Delivery Rate 04/28 1414 97.5 74 20 168/74 96 04/28 0932 88 148/70 04/28 0931 88 148/70 04/28 0639 98.4 73 20 152/80 93 Room Air 04/28 0400 180/80 04/28 0300 98.1 85 24 194/90 98 Room Air 04/27 2228 98.1 78 20 160/70 94 Room Air 04/27 1927 96.8 81 16 146/70 97 Room Air 04/27 1631 97.5 80 16 168/76 95 Room Air
[2017-04-28 23:04] VITALS: BP 158/70
[2017-04-29 06:48] VITALS: BP 180/72
--- NOTE | 2017-04-29 07:06 | PN- Housestaff ---
Subjective Follow-up For: Hyponatremia Orthostatic hypotension Subjective: I saw the patient today morning She is doing well, sleepy most of the day, certainly less anxious. Want to go home atleast by tomorrow. deneis any pain, need something for bowel movement. Review of Systems Constitutional: Reports: see HPI. Objective Last 24 Hrs of Vital Signs/I&O Vital Signs Date Time Temp Pulse Resp B/P B/P Pulse O2 O2 Flow FiO2 Mean Ox Delivery Rate 04/29 0648 99.1 89 20 180/72 96 Room Air 04/28 2304 98.6 78 20 158/70 95 Room Air 04/28 1414 97.5 74 20 168/74 96 04/28 0932 88 148/70 04/28 0931 88 148/70 Intake & Output 04/29 0800 04/29 0000 04/28 1600 Intake Total 575 Output Total 600 Balance -25 Intake, IV 100 Intake, Oral 475 Output, Urine 600 Patient 79.379 kg Weight Physical Exam General Appearance: Alert, Oriented X3, Cooperative Skin: No Rashes, No Breakdown HEENT: Atraumatic, PERRLA, EOMI Neck: Supple Cardiovascular: Normal S1, Normal S2, systolic murmur present Lungs: Clear to Auscultation, Normal Air Movement Abdomen: Normal Bowel Sounds, Soft, No Tenderness Neurological: Normal Tone, Sensation Intact, Cranial Nerves 3-12 NL Extremities: No Clubbing, No Cyanosis, No Edema Vascular: Normal Pulses, Pulses Symmetrical Current Medications: Current Medications Sig/Marisa Start time Last Medication Dose Route Stop Time Status Admin Acetaminophen 650 MG .STK-MED ONE 04/28 1629 DC PO 04/28 1630 Acetaminophen 650 MG Q6P PRN 04/27 2145 AC 04/28 PO 1629 Amlodipine Besylate 10 MG DAILY 04/28 1000 AC 04/28 PO 0931 Aspirin Buffered 81 MG DAILY 04/27 2315 AC 04/28 PO 0931 Atorvastatin Calcium 40 MG 1700 04/28 1700 AC 04/28 PO 1629 Enoxaparin Sodium 40 MG DAILY 04/27 2230 AC 04/28 SC 0932 Levothyroxine Sodium 0.112 MG DAILY AC 04/28 0700 AC 04/29 PO 0648 Lisinopril 20 MG DAILY 04/28 1000 AC 04/28 PO 0932 Mirtazapine 15 MG AT BEDTIME 04/28 2200 AC 04/28 PO 2042 Omeprazole 40 MG DAILY AC 04/28 0700 04/29 PO 0648 Patient Medication 1 ED .STK-MED ONE 04/28 1334 DC Teaching ED 04/28 1335 Potassium Chloride 40 MEQ ONCE ONE 04/28 0930 DC 04/28 PO 04/28 0931 0931 Ramelteon 8 MG AT BEDTIME NEED.. 04/27 2145 AC PO Sodium Chloride 1,000 ML Q8H 04/27 1830 LA 04/28 IV 0220 Last 24 Hrs of Lab/August Results Last 24 Hrs of Labs/Mics: Laboratory Tests 04/29/17 0706: Anion Gap 8, Estimated GFR > 60, BUN/Creatinine Ratio 15.0 Assessment/Plan Assessment: Ms. Mcginnis is 76 year old female with PMH significant for HTN, HLD, PVD status post femorofemoral bypass and revascularization of left left brachial and left radial arteries in 2002 and 2010, CAD, status post an [place] in 2001, psoriasis/ psoriatic arthritis, hypothyroidism and anxiety/depression who presented from home after fall. She is admitted for hyponatremia secondary to Paroxetine and orthostatic hypotension. Plan Admit to general medicine floor Hyponatremia * Possibly secondary to Paroxetine vs dehydration * Urine lytes show urine osmolality of 145, random creatinine 29, random sodium 10, potassium 8.6. * Na today is 135. * Discontinued paroxetine * check BEP tomorrow. Severe Anxiety * Patient is much calm today -- wants to go home * starting mirtazepine 15mg at bedtime -- helped her but very drowsy. * Reports feeling unwell on xanax. * Psych consulted Neurocardiogenic syncope secondary to orthostatic hypotension * Orthostats are positive again, we will repeat tomorrow * adequately hydrated * Urine culture chronic and stable conditions HTN: continue amlodipine 10mg, lisinopril 20mg Hypothyroidism: Levothyroxine 0.112mg daily CAD/PVD: Aspirin 81mg, Atorvastatin 40mg Insomnia: Ramelteon 8mg at bedtime SC lovenox for DVT Heart healthy diet Full code Problem List: 1. Hyponatremia 2. Fall 3. Anxiety Pain Ratin Pain Location: n/a Pain Goal: Pain 4 or less Pain Plan: tylenol prn Tomorrow's Labs & Rationales: bep to monitor Na and Cr
--- NOTE | 2017-04-29 10:58 | PN- Att Addend ---
Attending Addendum Attending Brief Note Patient looking better. Feels a little sleepy from her neuropsych med. States she is still very slightly orthostatic. Temp max 99 1. No major changes on physical sodium today was 135 potassium 3.5. We'll continue monitoring orthostatics hydrated increase ambulation and check with psychiatry regarding adjusting the medication little bit lower dose. If stable later on then start disposition plans. Current Medications Sig/Marisa Start time Last Medication Dose Route Stop Time Status Admin Acetaminophen 650 MG .STK-MED ONE 04/28 1629 DC PO 04/28 1630 Acetaminophen 650 MG Q6P PRN 04/27 2145 AC 04/28 PO 1629 Amlodipine Besylate 10 MG DAILY 04/28 1000 AC 04/29 PO 1013 Aspirin Buffered 81 MG DAILY 04/27 2315 AC 04/29 PO 1013 Atorvastatin Calcium 40 MG 1700 04/28 1700 AC 04/28 PO 1629 Enoxaparin Sodium 40 MG DAILY 04/27 2230 AC 04/29 SC 1013 Levothyroxine Sodium 0.112 MG DAILY AC 04/28 0700 AC 04/29 PO 0648 Lisinopril 20 MG DAILY 04/28 1000 AC 04/29 PO 1013 Mirtazapine 15 MG AT BEDTIME 04/28 2200 AC 04/28 PO 2042 Omeprazole 40 MG DAILY AC 04/28 0700 AC 04/29 PO 0648 Patient Medication 1 ED .STK-MED ONE 04/28 1334 DC Teaching ED 04/28 1335 Potassium Chloride 40 MEQ ONCE ONE 04/29 0915 DC 04/29 PO 04/29 0916 1012 Ramelteon 8 MG AT BEDTIME NEED.. 04/27 2145 AC PO Laboratory Tests 04/29/17 0706: Anion Gap 8, Estimated GFR > 60, BUN/Creatinine Ratio 15.0 04/28/17 0740: Anion Gap 9, Estimated GFR > 60, BUN/Creatinine Ratio 16.0, CBC w Diff NO MAN DIFF REQ, RBC 4.25, MCV 92.9, MCH 31.9 H, RDW 12.4, MPV 7.5, Gran % 63.6, Lymphocytes % 22.3, Monocytes % 12.6 H, Eosinophils % 1.1, Basophils % 0.4, Absolute Granulocytes 4.1, Absolute Lymphocytes 1.4, Absolute Monocytes 0.8 H, Absolute Eosinophils 0.1, Absolute Basophils 0, PUBS MCHC 34.3 04/28/17 0600: Urine Osmolality Cancelled 04/27/17 1645: Urinalysis LIGHT H, Urine Color YEL, Urine Clarity CLEAR, Urine pH 6.5, Ur Specific [place] <= 1.005, Urine Protein NEG, Urine Ketones NEG, Urine Nitrite NEG, Urine Bilirubin NEG, Urine Urobilinogen 0.2, Ur Leukocyte Esterase LARGE H , Ur Microscopic SEDIMENT EXAMINED, Urine WBC 10-15 H, Ur Epithelial Cells FEW, Urine Bacteria FEW H, Urine Hemoglobin NEG, Urine Glucose NEG 04/27/17 1645: Urine Osmolality 145 L, Ur Random Creatinine 29.7, Ur Random Sodium 10 L, Ur Random Potassium 8.6, Fraction Sodium Excret 0.2 04/27/17 1530: Anion Gap 11, Estimated GFR > 60, BUN/Creatinine Ratio 25.7 H, Glucose 96, Serum Osmolality 263 L, Calcium 9.8, Total Bilirubin 0.7, AST 28, ALT 40, Alkaline Phosphatase 64, Troponin I < 0.01, Total Protein 6.7, Albumin 4.1, Globulin 2.6, Albumin/Globulin Ratio 1.6, TSH 1.370, Free T4 1.93, CBC w Diff NO MAN DIFF REQ, RBC 4.25, MCV 93.8, MCH 32.0 H, RDW 12.2, MPV 6.7 L, Gran % 67.9 , Lymphocytes % 18.7 L, Monocytes % 12.1 H, Eosinophils % 0.9, Basophils % 0.4 , Absolute Granulocytes 5.8, Absolute Lymphocytes 1.6, Absolute Monocytes 1.0 H , Absolute Eosinophils 0.1, Absolute Basophils 0, PUBS MCHC 34.1 Microbiology 04/27 230 STOOL: Stool Culture - COLB 04/27 2302 URINE ROUT: Urine Culture - CAN Cancelled: Cancelled via OE: Per MD Decision 04/27 164 URINE ROUT: Urine Culture - RES Laboratory Tests 04/29/17 0706: Anion Gap 8, Estimated GFR > 60, BUN/Creatinine Ratio 15.0 04/28/17 0740: Anion Gap 9, Estimated GFR > 60, BUN/Creatinine Ratio 16.0, CBC w Diff NO MAN DIFF REQ, RBC 4.25, MCV 92.9, MCH 31.9 H, RDW 12.4, MPV 7.5, Gran % 63.6, Lymphocytes % 22.3, Monocytes % 12.6 H, Eosinophils % 1.1, Basophils % 0.4, Absolute Granulocytes 4.1, Absolute Lymphocytes 1.4, Absolute Monocytes 0.8 H, Absolute Eosinophils 0.1, Absolute Basophils 0, PUBS MCHC 34.3 04/28/17 0600: Urine Osmolality Cancelled 04/27/17 1645: Urinalysis LIGHT H, Urine Color YEL, Urine Clarity CLEAR, Urine pH 6.5, Ur Specific [place] <= 1.005, Urine Protein NEG, Urine Ketones NEG, Urine Nitrite NEG, Urine Bilirubin NEG, Urine Urobilinogen 0.2, Ur Leukocyte Esterase LARGE H , Ur Microscopic SEDIMENT EXAMINED, Urine WBC 10-15 H, Ur Epithelial Cells FEW, Urine Bacteria FEW H, Urine Hemoglobin NEG, Urine Glucose NEG 04/27/17 1645: Urine Osmolality 145 L, Ur Random Creatinine 29.7, Ur Random Sodium 10 L, Ur Random Potassium 8.6, Fraction Sodium Excret 0.2 04/27/17 1530: Anion Gap 11, Estimated GFR > 60, BUN/Creatinine Ratio 25.7 H, Glucose 96, Serum Osmolality 263 L, Calcium 9.8, Total Bilirubin 0.7, AST 28, ALT 40, Alkaline Phosphatase 64, Troponin I < 0.01, Total Protein 6.7, Albumin 4.1, Globulin 2.6, Albumin/Globulin Ratio 1.6, TSH 1.370, Free T4 1.93, CBC w Diff NO MAN DIFF REQ, RBC 4.25, MCV 93.8, MCH 32.0 H, RDW 12.2, MPV 6.7 L, Gran % 67.9 , Lymphocytes % 18.7 L, Monocytes % 12.1 H, Eosinophils % 0.9, Basophils % 0.4 , Absolute Granulocytes 5.8, Absolute Lymphocytes 1.6, Absolute Monocytes 1.0 H , Absolute Eosinophils 0.1, Absolute Basophils 0, PUBS MCHC 34.1 Microbiology Date/Time Procedure - Status Source Growth 04/27 2304 Stool Culture - COLB STOOL 04/27 2302 Urine Culture - CAN URINE ROUT Cancelled: Cancelled via OE: Per MD Decision 04/27 1645 Urine Culture - RES URINE ROUT
[2017-04-29 14:06] VITALS: BP 100/60
[2017-04-29 14:12] VITALS: BP 100/60
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
--- NOTE | 2017-04-29 15:40 | Patient Discharge Instructions ---
Discharge Instructions General Discharge Information You were seen/treated for: Hyponatremia Syncope Orthostatic hypotension Special Instructions: Please follow up with your PCP in a week Please follow up with [facility] outpatient psychiatric services on 12: 45pm on 05/13/17. Please take your ID and insurance card. Any further questions please call [phone] Diet Continue normal diet: Yes Activity Full Activity/No Limits: Yes Activity Self Limited: Yes Acute Coronary Syndrome Inclusion Criteria At DC or during hospital stay patient has or had the following: ACS DIAGNOSIS No Discharge Core Measures Meds if any: Prescribed or Continued at Discharge Meds if any: NOT Prescribed or Continued at Discharge Congestive Heart Failure Inclusion Criteria At DC or during hospital stay patient has or had the following: CHF DIAGNOSIS No Discharge Core Measures Meds if any: Prescribed or Continued at Discharge Meds if any: NOT Prescribed or Continued at Discharge Cerebrovascular accident Inclusion Criteria At DC or during hospital stay patient has or had the following: CVA/TIA Diagnosis No Discharge Core Measures Meds if any: Prescribed or Continued at Discharge Meds if any: NOT Prescribed or Continued at Discharge Venous thromboembolism Inclusion Criteria VTE Diagnosis No VTE Type NONE VTE Confirmed by (Test) NONE Discharge Core Measures - Per Current guidelines, there needs to be overlap - treatment for the first 5 days of Warfarin therapy. - If discharged on Warfarin prior to 5 days of - overlap therapy, the patient will need to be - assessed for post discharge needs including - *Post discharge parental anticoagulation - *Warfarin and/or parental anticoagulation education - *Follow up date to check INR post discharge At least 5 days overlap therapy as Inpatient No Meds if any: Prescribed or Continued at Discharge Note: Overlap Therapy is Warfarin and Anticoagulant Meds if any: NOT Prescribed or Continued at Discharge
[2017-04-29 22:35] VITALS: BP 154/68
--- NOTE | 2017-04-30 06:49 | PN- Housestaff ---
Subjective Follow-up For: Hyponatremia Orthostatic hypotension Subjective: I saw and examined the patient today morning She is doing much better, no overnight events. Reports sleeping well. Denies any pain/anxiety. No bowel movement since admission. Review of Systems Constitutional: Reports: see HPI. Objective Last 24 Hrs of Vital Signs/I&O Vital Signs Date Time Temp Pulse Resp B/P B/P Pulse O2 O2 Flow FiO2 Mean Ox Delivery Rate 04/29 2235 98.9 70 20 154/68 96 Room Air 04/29 1412 87 100/60 04/29 1406 97.7 87 18 100/60 98 Room Air 04/29 1013 70 128/72 04/29 1013 70 128/72 Intake & Output 04/30 0800 04/30 0000 04/29 1600 Intake Total 240 360 800 Output Total 1150 400 Balance 240 -790 400 Intake, Oral 240 360 800 Output, Urine 1150 400 Physical Exam General Appearance: Alert, Oriented X3, Cooperative Skin: No Rashes, No Breakdown HEENT: Atraumatic, PERRLA, EOMI Neck: Supple Cardiovascular: Normal S1, Normal S2 Lungs: Normal Air Movement, mild crackles at bases Abdomen: Normal Bowel Sounds, Soft, No Tenderness Neurological: Normal Gait, Normal Speech, Strength at 5/5 X4 Ext, Normal Tone, Sensation Intact Extremities: No Clubbing, No Edema Vascular: Normal Pulses, Pulses Symmetrical Current Medications: Current Medications Sig/Marisa Start time Last Medication Dose Route Stop Time Status Admin Acetaminophen 650 MG Q6P PRN 04/27 2145 AC 04/28 PO 1629 Amlodipine Besylate 10 MG DAILY 04/28 1000 AC 04/29 PO 1013 Aspirin Buffered 81 MG DAILY 04/27 2315 AC 04/29 PO 1013 Atorvastatin Calcium 40 MG 1700 04/28 1700 AC 04/29 PO 1610 Docusate Sodium 100 MG BID 04/29 2200 AC 04/29 PO 205 Enoxaparin Sodium 40 MG DAILY 04/27 223 AC 04/29 SC 1013 Levothyroxine Sodium 0.112 MG DAILY AC 04/28 0700 AC 04/30 PO 0540 Lisinopril 20 MG DAILY 04/28 1000 AC 04/29 PO 1013 Mirtazapine 15 MG AT BEDTIME 04/28 2200 AC 04/29 PO 2056 Omeprazole 40 MG DAILY AC 04/28 0700 AC 04/30 PO 0540 Patient Medication 1 ED .STK-MED ONE 04/29 1407 NV Teaching ED 04/29 1408 Polyethylene Glycol 17 GM DAILY 04/29 1816 AC 04/29 PO 1833 Potassium Chloride 40 MEQ ONCE ONE 04/29 0915 DC 04/29 PO 04/29 0916 1012 Ramelteon 8 MG AT BEDTIME NEED.. 04/27 2145 AC PO Senna/Docusate Sodium 2 TAB DAILY PRN 04/29 1830 AC PO Last 24 Hrs of Lab/August Results Last 24 Hrs of Labs/Mics: Laboratory Tests 04/30/17 0639: Anion Gap 8, Estimated GFR > 60, BUN/Creatinine Ratio 18.6 Assessment/Plan Assessment: Ms. Mcginnis is 76 year old female with PMH significant for HTN, HLD, PVD status post femorofemoral bypass and revascularization of left left brachial and left radial arteries in 2002 and 2010, CAD, status post an NV in 2001, psoriasis/ psoriatic arthritis, hypothyroidism and anxiety/depression who presented from home after fall. She is admitted for hyponatremia secondary to Paroxetine and orthostatic hypotension. Plan Admit to general medicine floor Hyponatremia * Possibly secondary to Paroxetine or polydipsia secondary to paroxetine * Urine lytes show urine osmolality of 145, random creatinine 29, random sodium 10, potassium 8.6. * Na today is 134. * Discontinued paroxetine Severe Anxiety * Patient is doing very well today * continue mirtazepine 15mg at bedtime * Reports feeling unwell on xanax. * Psych consulted - appreciate their recommendations. * Stable for discharge Neurocardiogenic syncope secondary to orthostatic hypotension * Doing well. * adequately hydrated * mildly postive yesterday form sitting to standing position chronic and stable conditions HTN: continue amlodipine 10mg, lisinopril 20mg Hypothyroidism: Levothyroxine 0.112mg daily CAD/PVD: Aspirin 81mg, Atorvastatin 40mg Insomnia: Ramelteon 8mg at bedtime SC lovenox for DVT Heart healthy diet Full code Problem List: 1. Hyponatremia 2. Anxiety 3. Fall Pain Ratin Pain Location: n/a Pain Goal: Pain 4 or less Pain Plan: tylenol prn Tomorrow's Labs & Rationales: none
[2017-04-30 06:50] VITALS: BP 160/70
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
[2017-04-30] MEDS ORDERED: REMERON15 M2 PO (10:55)
--- NOTE | 2017-04-30 18:33 | PN- Att Addend ---
Attending Addendum Attending Brief Note Patient looking and feeling much better today him up or either stronger and vital signs are stable with no new changes on physical sodium 134. Patient stable for discharge today and see CMR patient to follow with psychiatry myself Current Medications Sig/Marisa Start time Last Medication Dose Route Stop Time Status Admin Acetaminophen 650 MG Q6P PRN 04/27 2145 DCD 04/28 PO 1629 Amlodipine Besylate 10 MG DAILY 04/28 1000 DCD 04/30 PO 1119 Aspirin Buffered 81 MG DAILY 04/27 2315 DCD 04/30 PO 1119 Atorvastatin Calcium 40 MG 1700 04/28 1700 DCD 04/29 PO 1610 Docusate Sodium 100 MG BID 04/29 2200 DCD 04/30 PO 1119 Enoxaparin Sodium 40 MG DAILY 04/27 2230 DCD 04/30 SC 1118 Levothyroxine Sodium 0.112 MG DAILY AC 04/28 0700 DCD 04/30 PO 0540 Lisinopril 20 MG DAILY 04/28 1000 DCD 04/30 PO 1119 Mirtazapine 15 MG AT BEDTIME 04/28 2200 DCD 04/29 PO 2056 Omeprazole 40 MG DAILY AC 04/28 0700 DCD 04/30 PO 0540 Polyethylene Glycol 17 GM DAILY 04/29 1816 DCD 04/30 PO 1118 Ramelteon 8 MG AT BEDTIME NEED.. 04/27 2145 DCD PO Senna/Docusate Sodium 2 TAB DAILY PRN 04/29 1830 DCD PO Sodium Phosphate 1 UNIT ONCE ONE 04/30 0930 DC 04/30 SD 04/30 0931 1118 Laboratory Tests 04/30/17 0639: Anion Gap 8, Estimated GFR > 60, BUN/Creatinine Ratio 18.6 04/29/17 0706: Anion Gap 8, Estimated GFR > 60, BUN/Creatinine Ratio 15.0 04/28/17 0740: Anion Gap 9, Estimated GFR > 60, BUN/Creatinine Ratio 16.0, CBC w Diff NO MAN DIFF REQ, RBC 4.25, MCV 92.9, MCH 31.9 H, RDW 12.4, MPV 7.5, Gran % 63.6, Lymphocytes % 22.3, Monocytes % 12.6 H, Eosinophils % 1.1, Basophils % 0.4, Absolute Granulocytes 4.1, Absolute Lymphocytes 1.4, Absolute Monocytes 0.8 H, Absolute Eosinophils 0.1, Absolute Basophils 0, PUBS MCHC 34.3 04/28/17 0600: Urine Osmolality Cancelled Microbiology 04/27 2304 STOOL: Stool Culture - CAN Cancelled: SPECIMEN NOT RECEIVED IN LABORATORY 04/27 2302 URINE ROUT: Urine Culture - CAN Cancelled: Cancelled via OE: Per MD Decision Vital Signs Date Time Temp Pulse Resp B/P B/P Pulse O2 O2 Flow FiO2 Mean Ox Delivery Rate 04/30 0650 98.8 86 20 160/70 96 Room Air 04/29 2235 98.9 70 20 154/68 96 Room Air Intake & Output 04/30 1600 04/30 0800 04/30 0000 Intake Total 240 360 Output Total 1150 Balance 240 -790 Intake, Oral 240 360 Output, Urine 1150
== END 2017-04-30 12:57 | DRG 641 ==
LOC: ERH 13:49 → ERHI 19:13 → 2NA 19:13 → ENRESERV 20:24 → ENTRNSPT 20:50 → 2NA 21:36 → CMPTRNSPT 21:52 → 2NA 04-30 12:57
PROVIDERS: Physician Assistant; Student in an Organized Health Care Education/Training Program; ADMIT Internal Medicine
DX: E87.1 Hypo-osmolality and hyponatremia (principal); L40.50 Arthropathic psoriasis, unspecified; I10 Essential (primary) hypertension; I25.2 Old myocardial infarction; F41.9 Anxiety disorder, unspecified; F32.9 Major depressive disorder, single episode, unspecified; I95.1 Orthostatic hypotension; I25.10 Atherosclerotic heart disease of native coronary artery without angina pectoris; G47.00 Insomnia, unspecified; E03.9 Hypothyroidism, unspecified; E78.5 Hyperlipidemia, unspecified
CPT/HCPCS: 2NASP; 84133; 84300; 36415; 81001; 82436; 82570; 87045; 87086; 93005; 93010; 97116-GO; 97161-GP; 97530-GO; J1650